=== PATIENT | male | born 1945 | race Asian ===

== ENCOUNTER 2020-06-01 17:01 | Emergency (ER) | payer OTHER, MEDICAID, SELFPAY ==
[~2020-06-01] VITALS: Ht 172.7 cm; Wt 87.1 kg
[2020-06-01 17:30] VITALS: Ht 172.7 cm; Wt 87.1 kg
[2020-06-01 20:51] LABS: BASOPHIL % 0.4 % (0-2); PLATELET COUNT 212 x10^3mcL (130-400); RED CELL DISTRIBUTION WIDTH 14.2 % (11.5-14.5)
[2020-06-01 21:00] LABS: CALCIUM 8.8 mg/dL (8.5-10.1); CARBON DIOXIDE 23.9 mmol/L (21-32); CHLORIDE SERUM 103 mmol/L (98-107); GLUCOSE SERUM 108 mg/dL (74-106); POTASSIUM SERUM 4.1 mmol/L (3.5-5.1); SODIUM SERUM 138 mmol/L (136-145)
[2020-06-01 21:05] LABS: ALBUMIN 4.1 g/dL (3.4-5.0); ALKALINE PHOSPHATASE 53 U/L (46-116); ALT/SGPT 38 U/L (16-63); AST/SGOT 77 U/L (15-37); BILIRUBIN TOTAL 1.2 mg/dL (0.20-1.00); TOTAL PROTEIN, SERUM 7.3 g/dL (6.4-8.2)
[2020-06-01 22:20] VITALS: BP 155/76
== END 2020-06-01 22:20 | disposition short-term general hospital (02) ==
LOC: ED 17:01
PROVIDERS: Emergency Medicine
DX: I21.3 ST elevation (STEMI) myocardial infarction of unspecified site (principal); R53.1 Weakness; I10 Essential (primary) hypertension
CPT/HCPCS: Q0092